=== PATIENT | male | born 1960 | race Asian ===

== ENCOUNTER 2016-11-02 06:23 | Day surgery (SDC) | payer OTHER ==
[~2016-11-02] VITALS: Ht 171.4 cm; Wt 67.5 kg
[2016-11-02 07:22] VITALS: Ht 171.4 cm; Wt 67.5 kg
[2016-11-02] MEDS ORDERED: ALBU18HF INHALATION (07:28)
[2016-11-02 07:55] VITALS: BP 118/71; PULSE 80; RESP 20
[2016-11-02] MEDS ORDERED: MIDAZOLAM 1 MG/ML 2 ML INJ ONE ×3 (08:39→11:31)
[2016-11-02] MEDS ORDERED: FENTAnyl 50 MCG/ML VIAL ONE (08:39)
[2016-11-02 08:55] VITALS: BP 118/70; PULSE 80; RESP 20
--- NOTE | 2016-11-02 09:44 | GILP ---
DATE OF PROCEDURE: INDICATION: A 56-year-old male undergoing this procedure for positive stool guaiac and colon cancer screening. The risks of the procedure, related and unrelated complications, anesthetic risks, alte rnatives were discussed. Informed consent was obtained. DESCRIPTION OF PROCEDURE: The patient was brought to the GI lab, sedated with Versed 4 mg and fenta nyl 100 mcg. After optimal sedation a digital examination done. No mass was felt. Sphincter tone was normal. Pediatric colonoscope was passed with much ease into the rectum, advanced through the s igmoid, descending, transverse colon, all the way into the cecum and finally into the terminal ileum . Terminal ileum was normal up to 3 feet. The rest of the colon was normal. The were 1 or 2 scatt ered diverticula seen. There was a polyp, diminutive, identified at 45 cm, successfully removed by cold snare technique. I do not know whether we retrieved the polyp or not. Retroversion showed a s kin tag and also the patient had external hemorrhoids. IMPRESSION: 1. External hemorrhoids. 2. Skin tag. 3. A polyp at 45 cm, 6 to 7 mm in diameter, removed with cold snare technique. 4. Mild diverticulosis, mainly on the hepatic flexure. 5. Negative all the way into the cecum and terminal ileum. 6. Clarity was good and adequate. PLAN: Review the histopathology and patient to stay on a high fiber diet. Dictated By: MICHELINE LOMBARDO/VIRGEN Conf#: [id number] DID#: [id number]
== END 2016-11-02 10:19 | disposition home or self-care (01) ==
LOC: GIL 06:23
PROVIDERS: ATTEND Internal Medicine Gastroenterology
DX: Z12.11 Encounter for screening for malignant neoplasm of colon (principal); K64.4 Residual hemorrhoidal skin tags; K57.90 Diverticulosis of intestine, part unspecified, without perforation or abscess without bleeding
CPT/HCPCS: 45385; 88305; J2250; J3010; Z7610